=== PATIENT | male | born 1950 | race Caucasian/White ===

== ENCOUNTER 2017-08-14 19:07 | Emergency (ER) | payer MEDICARE, OTHER ==
[~2017-08-14 19:07] MED LIST: ASPI325T PO; CLON-352 PO; HYDR-2768 PO; ROSU20 PO
[2017-08-14 19:15] VITALS: BP 187/91; PULSE 76; RESP 16; TEMP 97.7; O2SAT 99
--- NOTE | 2017-08-14 21:52 | PD ---
HPI Chief Complaint: Musculoskeletal Complaint Time Seen by Provider: 21:35 Travel History International Travel<30 days: No Contact w/Intl Traveler<30days: No Traveled to known affect area: No History of Present Illness HPI Was empty 66-year-old white male presents from her department with complains of left lateral lower leg pain for the past week. He denies trauma. He states that the pain is worse with palpation. There is no alleviating factors. He has taken some ibuprofen without relief. He denies any history of pain in this area. He denies any numbness, tingling or weakness. Patient has a history of hypertension, gout and hypercholesterolemia. He has an appointment to see his doctor next week. He was advised by the pharmacist not to take ibuprofen. Patient denies any chest pain or shortness of breath. No redness, swelling or numbness. Patient states that he is going on a cruise next week and he would like to be sure that he is fine. Patient states the pain is mild. PFSH Past Medical History Narrative Medical Hypertension, hypercholesterolemia, gout Cardiovascular Problems: Yes (PVD) High Cholesterol: Yes Herniated Disk: Yes Hypertension: Yes Social History Alcohol Use: Yes (SOCIAL) Tobacco Use: No Substance Use: No Allergies-Medications (Allergen,Severity, Reaction): Coded Allergies: nitroglycerin (Unverified Allergy, Severe, Hallucinations, 08/14/17) Reported Meds & Prescriptions Reported Meds & Active Scripts Active Hctz (Hydrochlorothiazide) 25 Mg Tab 25 Mg PO DAILY Reported Aspirin 325 Mg Tab (Aspirin) 325 Mg Tab 325 Mg PO DAILY Crestor (Rosuvastatin Calcium) 20 Mg Tab 20 Mg PO DAILY Clonidine Hcl (Clonidine HCl) 0.1 Mg Tab 0.1 Mg PO DIRECTED Review of Systems General / Constitutional: No: Fever Physical Exam Narrative GENERAL: This is a well-nourished, well-developed patient, in no apparent distress. SKIN: No rashes, ecchymoses or lesions. Warm and dry. HEAD: Atraumatic. Normocephalic. EYES: PERRL, EOMI, no discharge or injection. No scleral icterus. EARS: Clear NOSE: Nasal turbinates appear normal. THROAT: Mucosa pink and moist. Airway patent. NECK: Trachea midline. supple, moves head freely. LUNGS: Clear to auscultation. CV: Regular in rhythm. ABDOMEN: Soft nontender. EXT: No clubbing cyanosis or edema. Examination of the left lower leg compared to the right lower leg. There is no size difference, color difference, temperature difference, or sensory changes. He has strong equal bilateral dorsalis pedis and posterior tibialis pulses. No Tenderness. No Homans sign. The patient complains of some mild discomfort to the mid lateral aspect of the left leg. He ambulates with a normal gait. Data Data Last Documented VS Vital Signs Date Time Temp Pulse Resp B/P (MAP) Pulse Ox O2 Delivery O2 Flow Rate FiO2 08/14/17 19:15 97.7 76 16 187/91 (123) 99 Room Air Orders Orders Ed Discharge Order (08/14/17 21:47) MDM Medical Decision Making Medical Screen Exam Complete: Yes Emergency Medical Condition: Yes Medical Record Reviewed: Yes Differential Diagnosis MDM: High Differential diagnoses: Fracture, sprain, strain, dislocation, contusion, neurovascular injury Narrative Course Patient's exam is reassuring. I do not see any evidence of any compartment or acute vascular symptoms. He has normal temperature normal color and normal size and sensation. He ambulates freely. He does not appear to be in any discomfort. Patient is advised only to take Tylenol and keep his appointment next week with his primary care doctor. Diagnosis Primary Impression: Pain in left lower leg Patient Instructions: General Instructions Departure Forms: Tests/Procedures, Work Release Special Instructions: No work 5 days. Additional Instructions: Rest. Elevation. Ice for the next few days then use heat. He may use ice 20 minutes on and one hour off for 3 days then go to a heating pad. 2 regular Tylenol 650 mg total 4 times a day. Follow up here doctor next week as scheduled. Return to the ER if any problems. Med/Other Pt SpecificInfo: No Meds Exist/No RX given Disposition: 01 DISCHARGE HOME Condition: Stable Deon Blank Aug 14, 2017 21:52
== END 2017-08-14 22:06 | disposition home or self-care (01) ==
LOC: NEPK 19:07
DX: M79.662 Pain in left lower leg (principal); I10 Essential (primary) hypertension; E78.00 Pure hypercholesterolemia, unspecified; M10.9 Gout, unspecified; I73.9 Peripheral vascular disease, unspecified; Z79.82 Long term (current) use of aspirin; Z79.899 Other long term (current) drug therapy
CPT/HCPCS: 99282